=== PATIENT | male | born 1995 | race African-American/Black ===

== ENCOUNTER 2024-09-09 14:40 | Emergency (ER) | payer OTHER, SELFPAY ==
[~2024-09-09] VITALS: Ht 175.3 cm; Wt 68.0 kg
[2024-09-09 14:40] VITALS: BP_SYST 126; RESP 18
[2024-09-09 14:58] VITALS: BP 126/74; PULSE 62; RESP 18; TEMP 97.7; O2SAT 100
[2024-09-09 15:19] VITALS: BP 115/70; PULSE 107; RESP 18; O2SAT 98
[2024-09-09 15:36] VITALS: BP 111/62; PULSE 108; RESP 18; O2SAT 96
== END 2024-09-09 15:37 ==
LOC: ER 14:40
DX: S62.396A Other fracture of fifth metacarpal bone, right hand, initial encounter for closed fracture (principal); Z02.89 Encounter for other administrative examinations; Z65.3 Problems related to other legal circumstances; V49.40XA Driver injured in collision with unspecified motor vehicles in traffic accident, initial encounter; Y93.89 Activity, other specified; Y92.89 Other specified places as the place of occurrence of the external cause; Y99.8 Other external cause status
CPT/HCPCS: 99283; 73110-RT